=== PATIENT | male | born 1955 | race Caucasian/White ===

== ENCOUNTER 2018-08-01 06:46 | Emergency (ER) | payer MEDICARE, OTHER ==
--- NOTE | 2018-08-01 07:34 | CR ---
INDICATION: prior sent. 3 images. shortness of breath INDICATION: Shortness of breath. TECHNIQUE: Chest 2 views. COMPARISON: 01/04/2018. FINDINGS: Cardiovascular and mediastinum: Heart size and vasculature are normal in caliber and appearance. Mediastinum is within normal limits. Lungs and pleural spaces: Lungs are clear. No sign of infiltrate or mass. No sign of pleural effusion. No pneumothorax. Bones and soft tissues: Median sternotomy changes. Mild pleural thickening at both lung apices. IMPRESSION: No acute airspace disease. Dictated by Jim Pizarro MD @ 08/01/2018 7:32:39 AM Dictated by: Jim Pizarro MD @ 08/01/2018 07:32:45 (Electronically Signed)
--- NOTE | 2018-08-01 08:00 | EDM.PDOC ---
ED HPI GENERAL MEDICAL PROBLEM - General Chief Complaint: Respiratory Problem Stated Complaint: CHEST PAIN FROM COUGHING Time Seen by Provider: 08/01/18 06:50 Source of Information: Reports: Patient History Limitations: Reports: No Limitations - History of Present Illness INITIAL COMMENTS - FREE TEXT/NARRATIVE: History of present illness: []Patient has had a cough for 2 weeks. He states his chest is sore when he coughs but does not have chest pain at rest. He denies any fevers, chills, nausea, vomiting or diarrhea. The patient continues to smoke. Patient has had cardiac bypass in the past Review of systems: As per history of present illness and below otherwise all systems reviewed and negative. Past medical history: As per history of present illness and as reviewed below otherwise noncontributory. Surgical history: As per history of present illness and as reviewed below otherwise noncontributory. Social history: No reported history of drug or alcohol abuse. Family history: As per history of present illness and as reviewed below otherwise noncontributory. Physical exam: General: Well developed, well nourished in NAD HEENT: Atraumatic, normocephalic, pupils reactive, negative for conjunctival pallor or scleral icterus, mucous membranes moist, throat clear, neck supple, nontender, trachea midline. Lungs: Clear to auscultation, coarse breath sounds equal bilaterally, faint expiratory wheezing in left lower lung field chest nontender. No chest wall retractions Heart: S1S2, regular, negative for clicks, rubs, or JVD. Abdomen: NABS, Soft, nondistended, nontender. Negative for masses or hepatosplenomegaly. Negative for costovertebral tenderness. Pelvis: Stable nontender. Genitourinary: Deferred. Rectal: Deferred. Extremities: Atraumatic, negative for cords or calf pain. Neurovascular unremarkable. Neuro: Awake, alert, oriented. Cranial nerves II through XII unremarkable. Cerebellum unremarkable. Motor and sensory unremarkable throughout. Exam nonfocal. Skin:warm and dry Diagnostics: Chest x-ray negative Therapeutics: None ED Course: Stable Impression: Bronchitis Prescriptions: Augmentin, albuterol, prednisone Plan: Take meds as directed, follow up with your primary care physician, return to ER if symptoms worsen or change. Definitive disposition and diagnosis as appropriate pending reevaluation and review of above. - Related Data Allergies Allergy/AdvReac Type Severity Reaction Status Date / Time No Known Allergies Allergy Verified 08/01/18 07:05 Home Meds: Home Meds Allopurinol [Zyloprim] 1 tab PO DAILY 12/30/13 [History] Clopidogrel [Plavix] 1 tab PO DAILY 12/30/13 [History] Isosorbide Mononitrate [Isosorbide Mononitrate ER] 1 tab PO DAILY 12/30/13 [ History] Lisinopril 1 tab PO DAILY 12/30/13 [History] Metoprolol Tartrate 1 tab PO DAILY 12/30/13 [History] Nitroglycerin [Nitrostat] 1 tab SL ASDIRECTED PRN 12/30/13 [History] atorvaSTATin [Lipitor] 1 tab PO DAILY 12/30/13 [History] Aspirin [Adult Low Dose Aspirin EC] 81 mg PO DAILY 01/04/18 [History] Ranitidine HCl [Ranitidine] 150 mg PO BID 01/04/18 [History] Albuterol [Ventolin HFA] 2 puff INH Q4HR PRN #1 inhaler 08/01/18 [Rx] Amoxicillin/Clavulanate K [Augmentin 875-125 MG] 1 tab PO BID #20 tablet [Rx] predniSONE [Prednisone] 20 mg PO DAILY #5 tablet 08/01/18 [Rx] Past Medical History Cardiovascular History: Reports: Bypass, High Cholesterol, Hypertension Gastrointestinal History: Reports: GERD Musculoskeletal History: Reports: Gout - Infectious Disease History Infectious Disease History: Reports: None - Past Surgical History HEENT Surgical History: Reports: Detached Retina Other HEENT Surgeries/Procedures: left eye and repair Social & Family History - Family History Family Medical History: Noncontributory - Tobacco Use Smoking Status *Q: Current Every Day Smoker Years of Tobacco use: 15 Packs/Tins Daily: 1 - Caffeine Use Caffeine Use: Reports: Coffee - Recreational Drug Use Recreational Drug Use: No ED ROS GENERAL - Review of Systems Review Of Systems: ROS reveals no pertinent complaints other than HPI. ED EXAM, GENERAL - Physical Exam Exam: See Below Course - Vital Signs Last Recorded V/S: Last Vital Signs Temp 97.4 F 08/01/18 07:05 Pulse 72 08/01/18 07:05 Resp 18 08/01/18 07:05 BP 149/86 H 08/01/18 07:05 Pulse Ox 95 08/01/18 07:05 Departure - Departure Time of Disposition: 08:01 Disposition: Home, Self-Care 01 Condition: Good Clinical Impression: Acute bronchitis Qualifiers: Bronchitis organism: unspecified organism Qualified Code(s): J20.9 - Acute bronchitis, unspecified - Discharge Information *PRESCRIPTION DRUG MONITORING PROGRAM REVIEWED*: No *COPY OF PRESCRIPTION DRUG MONITORING REPORT IN PATIENT DELANEY: No Prescriptions: Albuterol [Ventolin HFA] 2 puff INH Q4HR PRN #1 inhaler PRN Reason: Shortness Of Breath predniSONE [Prednisone] 20 mg PO DAILY #5 tablet Referrals: PCP,None [Primary Care Provider] - Additional Instructions: The following information is given to patients seen in the emergency department who are being discharged to home. This information is to outline your options for follow-up care. We provide all patients seen in our emergency department with a follow-up referral. The need for follow-up, as well as the timing and circumstances, are variable depending upon the specifics of your emergency department visit. If you don't have a primary care physician on staff, we will provide you with a referral. We always advise you to contact your personal physician following an emergency department visit to inform them of the circumstance of the visit and for follow-up with them and/or the need for any referrals to a consulting specialist. The emergency department will also refer you to a specialist when appropriate. This referral assures that you have the opportunity for follow-up care with a specialist. All of these measure are taken in an effort to provide you with optimal care, which includes your follow-up. Under all circumstances we always encourage you to contact your private physician who remains a resource for coordinating your care. When calling for follow-up care, please make the office aware that this follow-up is from your recent emergency room visit. If for any reason you are refused follow-up, please contact the [facility] Emergency Department at and asked to speak to the emergency department charge nurse. [facility] [address] [place] [id number]
== END 2018-08-01 08:20 | disposition home or self-care (01) ==
LOC: MW.ED 06:46
DX: J20.9 Acute bronchitis, unspecified (principal); F17.210 Nicotine dependence, cigarettes, uncomplicated; Z79.01 Long term (current) use of anticoagulants; Z79.899 Other long term (current) drug therapy
CPT/HCPCS: 71046; 71046-26; 99283; 99283-25

== ENCOUNTER 2019-02-01 08:47 | Emergency (ER) | payer MEDICARE, OTHER ==
--- NOTE | 2019-02-01 08:52 | EDM.PDOC ---
ED HPI GENERAL MEDICAL PROBLEM - General Chief Complaint: ENT Problem Stated Complaint: COLD SYMPTOMS Time Seen by Provider: 02/01/19 08:49 Source of Information: Reports: Patient History Limitations: Reports: No Limitations - History of Present Illness INITIAL COMMENTS - FREE TEXT/NARRATIVE: HISTORY AND PHYSICAL: History of present illness: patient is a 63-year-old male who presents to the emergency room with complaints of a dry nonproductive cough and sinus congestion 2 weeks. He states he has had a decreased appetite, although has been eating and drinking. Patient denies any fever, chills, headache, change in vision, syncope or near syncope. Denies any chest pain, back pain, or shortness of breath. Denies any GI or symptoms. Review of systems: As per history of present illness and below otherwise all systems reviewed and negative. Past medical history: As per history of present illness and as reviewed below otherwise noncontributory. Surgical history: As per history of present illness and as reviewed below otherwise noncontributory. Social history: See social history for further information Family history: As per history of present illness and as reviewed below otherwise noncontributory. Physical exam: General: Well developed and well nourished 63 year old male. A&O x 3. Nontoxic appearing and in no acute distress. VSS and have been reviewed by me. HEENT: Atraumatic, normocephalic, pupils equal and reactive bilaterally, negative for conjunctival pallor or scleral icterus, mucous membranes moist, TMs normal bilaterally, throat clear, neck supple, nontender, trachea midline. No drooling or trismus noted. No meningeal signs. No hot potato voice noted. Lungs: Clear to auscultation, breath sounds equal bilaterally, chest nontender. Heart: S1S2, regular rate and rhythm without overt murmur Abdomen: Soft, nondistended, nontender. Negative for masses or hepatosplenomegaly. Negative for costovertebral tenderness. Pelvis: Stable nontender. Skin: Intact, warm, dry. No lesions or rashes noted. Extremities: Atraumatic, moves all extremities per self without difficulty or deficits, negative for cords or calf pain. Neurovascular unremarkable. Neuro: Awake, alert, oriented. Cranial nerves II through XII unremarkable. Cerebellum unremarkable. Motor and sensory unremarkable throughout. Exam nonfocal. Notes: Patient is out of the window for Tamiflu. VSS. We reviewed contact precautions and s/s that would prompt him to return. Supportive care measures were reviewed and discussed. Voices understanding and is agreeable to plan of care. Denies any further questions or concerns at this time. Diagnostics: Influenza, CXR Therapeutics: None Prescription: None Impression: Influenza B Plan: 1. Standard contact precautions (covering mouth while coughing, avoid sharing drinking cups and eating utensils). Please make sure you're doing good handwashing as this is contagious. 2. Please take your inhaler as directed. Over the counter flu-symptom relief medications. 3. Supportive care measures such as Tylenol and/or ibuprofen for pain and fever management.Encourage small frequent sips of fluids to prevent dehydration. 4. Follow-up with your health worker in the next 1-2 days. Return to the ED as needed and as discussed. Definitive disposition and diagnosis as appropriate pending reevaluation and review of above. - Related Data Allergies Allergy/AdvReac Type Severity Reaction Status Date / Time No Known Allergies Allergy Verified 02/01/19 08:51 Home Meds: Home Meds Allopurinol [Zyloprim] 1 tab PO DAILY 12/30/13 [History] Clopidogrel [Plavix] 1 tab PO DAILY 12/30/13 [History] Isosorbide Mononitrate [Isosorbide Mononitrate ER] 1 tab PO DAILY 12/30/13 [ History] Lisinopril 1 tab PO DAILY 12/30/13 [History] Metoprolol Tartrate 1 tab PO DAILY 12/30/13 [History] Nitroglycerin [Nitrostat] 1 tab SL ASDIRECTED PRN 12/30/13 [History] atorvaSTATin [Lipitor] 1 tab PO DAILY 12/30/13 [History] Aspirin [Adult Low Dose Aspirin EC] 81 mg PO DAILY 01/04/18 [History] Ranitidine HCl [Ranitidine] 150 mg PO BID 01/04/18 [History] Albuterol [Ventolin HFA] 2 puff INH Q4HR PRN #1 inhaler 08/01/18 [Rx] Amoxicillin/Clavulanate K [Augmentin 875-125 MG] 1 tab PO BID #20 tablet [Rx] Past Medical History Cardiovascular History: Reports: Bypass, High Cholesterol, Hypertension Gastrointestinal History: Reports: GERD Musculoskeletal History: Reports: Gout - Infectious Disease History Infectious Disease History: Reports: None - Past Surgical History HEENT Surgical History: Reports: Detached Retina Other HEENT Surgeries/Procedures: left eye and repair Social & Family History - Family History Family Medical History: Noncontributory - Caffeine Use Caffeine Use: Reports: Coffee ED ROS ENT - Review of Systems Review Of Systems: Comprehensive ROS is negative, except as noted in HPI. ED EXAM, ENT - Physical Exam Exam: See Below (See dictation) Course - Vital Signs Last Recorded V/S: Last Vital Signs Temp 97.0 F 02/01/19 08:51 Pulse 65 02/01/19 08:51 Resp 17 02/01/19 08:51 BP 134/74 02/01/19 08:51 Pulse Ox 97 02/01/19 08:51 - Orders/Labs/Meds Orders: Active Orders 24 hr Category Date Time Status Chest 2V [CR] Stat Exams 02/01/19 08:50 Taken Departure - Departure Time of Disposition: 10:00 Disposition: Home, Self-Care 01 Clinical Impression: Influenza B - Discharge Information Instructions: Influenza, Adult, [id number] Forms: ED Department Discharge Additional Instructions: The following information is given to patients seen in the emergency department who are being discharged to home. This information is to outline your options for follow-up care. We provide all patients seen in our emergency department with a follow-up referral. The need for follow-up, as well as the timing and circumstances, are variable depending upon the specifics of your emergency department visit. If you don't have a primary care physician on staff, we will provide you with a referral. We always advise you to contact your personal physician following an emergency department visit to inform them of the circumstance of the visit and for follow-up with them and/or the need for any referrals to a consulting specialist. The emergency department will also refer you to a specialist when appropriate. This referral assures that you have the opportunity for follow-up care with a specialist. All of these measure are taken in an effort to provide you with optimal care, which includes your follow-up. Under all circumstances we always encourage you to contact your private physician who remains a resource for coordinating your care. When calling for follow-up care, please make the office aware that this follow-up is from your recent emergency room visit. If for any reason you are refused follow-up, please contact the [facility] Emergency Department at and asked to speak to the emergency department charge nurse. [facility] [address] [place] [address] [facility] [address] [place] [id number] 1. Standard contact precautions (covering mouth while coughing, avoid sharing drinking cups and eating utensils). Please make sure you're doing good handwashing as this is contagious. 2. Please take your inhaler as directed. Over the counter flu-symptom relief medications. 3. Supportive care measures such as Tylenol and/or ibuprofen for pain and fever management.Encourage small frequent sips of fluids to prevent dehydration. 4. Follow-up with your health worker in the next 1-2 days. Return to the ED as needed and as discussed. - My Orders Last 24 Hours: My Active Orders 02/01/19 08:50 Chest 2V [CR] Stat - Assessment/Plan Last 24 Hours: My Active Orders 02/01/19 08:50 Chest 2V [CR] Stat
--- NOTE | 2019-02-01 09:59 | CR ---
EXAM DATE: 02/01/19 PATIENT'S AGE: 63 Chest: Two views of the chest were obtained. Comparison: Prior chest x-ray of 08/01/18. Heart size and mediastinum are normal. Lungs are clear but hyperinflated. Previous sternotomy is noted for CABG. Minimal degenerative change is noted within the spine. Impression: 1. Emphysematous change. 2. Nothing acute is otherwise seen on two view chest x-ray. Diagnostic code #2 This report was dictated in [place] Standard Time Report Signed by Proxy. [facility]
== END 2019-02-01 10:17 | disposition home or self-care (01) ==
LOC: MW.ED 08:47
DX: J10.1 Influenza due to other identified influenza virus with other respiratory manifestations (principal); I10 Essential (primary) hypertension; E78.00 Pure hypercholesterolemia, unspecified; K21.9 Gastro-esophageal reflux disease without esophagitis; M10.9 Gout, unspecified; Z79.82 Long term (current) use of aspirin; Z79.02 Long term (current) use of antithrombotics/antiplatelets; Z79.899 Other long term (current) drug therapy
CPT/HCPCS: 71046; 71046-26; 87804; 99283-25

== ENCOUNTER 2019-05-10 10:34 | Emergency (ER) | payer MEDICARE ==
--- NOTE | 2019-05-10 11:41 | EDM.PDOC ---
ED HPI GENERAL MEDICAL PROBLEM - General Chief Complaint: Respiratory Problem Stated Complaint: COUGH/COLD Time Seen by Provider: 05/10/19 11:40 Source of Information: Reports: Patient History Limitations: Reports: No Limitations - History of Present Illness INITIAL COMMENTS - FREE TEXT/NARRATIVE: HISTORY AND PHYSICAL: History of present illness: Patient is a 63-year-old male presents to the ED with complaint of cough x 2 weeks. Patient states he has had a dry cough on and off and nasal drainage x 2 weeks. He states he would not have come to the ED today but his employer insisted he be seen due to COVID-19. Patient denies fevers, chest pain, shortness of breath, sore throat. He denies recent travel or known sick contacts. He does smoke 2ppd x 30+ years. Review of systems: As per history of present illness and below otherwise all systems reviewed and negative. Past medical history: As per history of present illness and as reviewed below otherwise noncontributory. Surgical history: As per history of present illness and as reviewed below otherwise noncontributory. Social history: No reported history of drug or alcohol abuse. Family history: As per history of present illness and as reviewed below otherwise noncontributory. Physical exam: General: Patient sitting comfortably in no acute distress and nontoxic appearing HEENT: Atraumatic, normocephalic, pupils reactive, negative for conjunctival pallor or scleral icterus, mucous membranes moist, throat clear, neck supple, nontender, trachea midline. No meningeal signs. Lungs: Clear to auscultation, breath sounds equal bilaterally, chest nontender. Heart: S1S2, regular, negative for clicks, rubs, or overt murmur. Abdomen: Soft, nondistended, nontender. Negative for masses or hepatosplenomegaly. Negative for costovertebral tenderness. No rigidity, rebound , guarding. Pelvis: Stable nontender. Genitourinary: Deferred. Rectal: Deferred. Extremities: Atraumatic, negative for cords or calf pain. Neurovascular unremarkable. Neuro: Awake, alert, oriented. Cranial nerves II through XII unremarkable. Cerebellum unremarkable. Motor and sensory unremarkable throughout. Exam nonfocal. Notes: Patient has not had recent travel or known sick contacts and mild respiratory symptoms and with limited testing availability for COVID-19, does not meet requirements for testing at this time. My suspicion for COVID is low and was advised to self quarantine if true fever and worsening respiratory symptoms develop for 14 days and to return to ED as needed for significant symptoms. Diagnostics: Declined chest x-ray Therapeutics: none Prescriptions: Ventolin inhaler Azithromycin Impression: Acute bronchitis Plan: Take medications as prescribed Follow up with primary care provider Return to ED as needed as discussed Definitive disposition and diagnosis as appropriate pending reevaluation and review of above. - Related Data Allergies Allergy/AdvReac Type Severity Reaction Status Date / Time No Known Allergies Allergy Verified 05/10/19 11:29 Home Meds: Home Meds Clopidogrel [Plavix] 1 tab PO DAILY 12/30/13 [History] Isosorbide Mononitrate [Isosorbide Mononitrate ER] 1 tab PO DAILY 12/30/13 [ History] Lisinopril 1 tab PO DAILY 12/30/13 [History] Metoprolol Tartrate 1 tab PO DAILY 12/30/13 [History] Nitroglycerin [Nitrostat] 1 tab SL ASDIRECTED PRN 12/30/13 [History] allopurinoL [Zyloprim] 1 tab PO DAILY 12/30/13 [History] atorvaSTATin [Lipitor] 1 tab PO DAILY 12/30/13 [History] Aspirin [Adult Low Dose Aspirin EC] 81 mg PO DAILY 01/04/18 [History] Ranitidine HCl [Ranitidine] 150 mg PO BID 01/04/18 [History] Albuterol [Ventolin HFA] 2 puff INH Q4HR PRN #1 inhaler 08/01/18 [Rx] Albuterol Sulfate [Proair Hfa] 2 inhalation IH Q4HR #1 [email or web address] 02/01/19 [Rx] Albuterol [Ventolin HFA] 1 puff INH Q4H #1 inhaler 05/10/19 [Rx] Azithromycin [Zithromax] 250 mg PO ASDIRECTED #1 dosepk 05/10/19 [Rx] Past Medical History Cardiovascular History: Reports: Bypass, High Cholesterol, Hypertension Gastrointestinal History: Reports: GERD Musculoskeletal History: Reports: Gout - Infectious Disease History Infectious Disease History: Reports: None - Past Surgical History HEENT Surgical History: Reports: Detached Retina Other HEENT Surgeries/Procedures: left eye and repair Social & Family History - Family History Family Medical History: Noncontributory - Tobacco Use Smoking Status *Q: Current Every Day Smoker Years of Tobacco use: 30 Packs/Tins Daily: 1 - Caffeine Use Caffeine Use: Reports: Coffee - Recreational Drug Use Recreational Drug Use: No ED ROS GENERAL - Review of Systems Review Of Systems: Comprehensive ROS is negative, except as noted in HPI. ED EXAM, GENERAL - Physical Exam Exam: See Below (see dictation) Course - Vital Signs Last Recorded V/S: Last Vital Signs Temp 97.5 F 05/10/19 12:16 Pulse 66 05/10/19 12:16 Resp 16 05/10/19 12:16 BP 124/80 05/10/19 12:16 Pulse Ox 96 05/10/19 12:16 Departure - Departure Time of Disposition: 11:40 Disposition: Home, Self-Care 01 Condition: Good Clinical Impression: Bronchitis Clinical Impression: (Ruled Out): Sinusitis - Discharge Information Prescriptions: Albuterol [Ventolin HFA] 1 puff INH Q4H #1 inhaler Azithromycin [Zithromax] 250 mg PO ASDIRECTED #1 dosepk Instructions: Sinusitis, Adult, [id number], Acute Bronchitis, Adult Referrals: PCP,Not In Area [Primary Care Provider] - Forms: ED Department Discharge Additional Instructions: The following information is given to patients seen in the emergency department who are being discharged to home. This information is to outline your options for follow-up care. We provide all patients seen in our emergency department with a follow-up referral. The need for follow-up, as well as the timing and circumstances, are variable depending upon the specifics of your emergency department visit. If you don't have a primary care physician on staff, we will provide you with a referral. We always advise you to contact your personal physician following an emergency department visit to inform them of the circumstance of the visit and for follow-up with them and/or the need for any referrals to a consulting specialist. The emergency department will also refer you to a specialist when appropriate. This referral assures that you have the opportunity for follow-up care with a specialist. All of these measure are taken in an effort to provide you with optimal care, which includes your follow-up. Under all circumstances we always encourage you to contact your private physician who remains a resource for coordinating your care. When calling for follow-up care, please make the office aware that this follow-up is from your recent emergency room visit. If for any reason you are refused follow-up, please contact the [facility] Emergency Department at and asked to speak to the emergency department charge nurse. [facility] [address], [place] [address] [address] Take medications as prescribed Follow up with primary care provider Return to ED as needed as discussed Sepsis Event Note - Evaluation Sepsis Screening Result: No Definite Risk - Focused Exam Vital Signs: Vital Signs Temp Pulse Resp BP Pulse Ox 05/10/19 12:16 97.5 F 66 16 124/80 96 05/10/19 11:27 97.2 F 64 18 110/68 97 Date Exam was Performed: 05/10/19 Time Exam was Performed: 13:39
== END 2019-05-10 12:16 | disposition home or self-care (01) ==
LOC: MW.ED 10:34
DX: J20.9 Acute bronchitis, unspecified (principal); I10 Essential (primary) hypertension; E78.00 Pure hypercholesterolemia, unspecified; K21.9 Gastro-esophageal reflux disease without esophagitis; M10.9 Gout, unspecified; F17.210 Nicotine dependence, cigarettes, uncomplicated; Z79.02 Long term (current) use of antithrombotics/antiplatelets; Z79.82 Long term (current) use of aspirin; Z79.899 Other long term (current) drug therapy
CPT/HCPCS: 99283-25